=== PATIENT | female | born 1930 | race Caucasian/White ===

== ENCOUNTER 2016-12-09 21:52 | Emergency (ER) | payer MEDICARE, OTHER ==
[~2016-12-09 21:52] MED LIST: ALEVE220 M4 PO; AMBIEN5 M1 PO; ASPIR 8181 M1 PO; ASPIRIN LOW STR81 MG; BACTRIM PO; CALCIUM 600 W/V1 TAB; CALCIUM600 M1 PO; CHONDROITIN SUL; CIPRO500 M2 PO; DEMADEX20 M1 PO; ESCITALOPRAM; ESCITALOPRAM OXA5 M1 PO; FUROSEMIDE40 MG; GLUCOSAMINE &1 EAC1 PO; GLUCOSAMINE500 MG; LISINOPRIL10 M1 PO; LISINOPRIL5 M1 PO; LOVASTATIN10 M1 PO; METAMUCIL POWD283 GM PO; MULTIVITAMIN1 TAB; MULTIVITAMINS1 EAC6 PO; OMEGA-31000 MG; OXYBUTYNIN CHLOR5 M2 PO; POTASSIUM; PROMETHAZINE-C118 ML PO; RED YEAST RICE600 MG; STOOL SOFTENER100 MG; TRIAMTERENE; VALACYCLOVIR1000 M1 PO
[2016-12-09] MEDS ORDERED: LEXAPRO10 M2 PO (22:09)
[2016-12-09] MEDS ORDERED: MAXZIDE 37.5 M1 EAC1 PO (22:10)
[2016-12-09] MEDS ORDERED: FISH OIL 1,2001 EAC5 PO (22:11)
[2016-12-09] MEDS ORDERED: BIOTIN10 M1 PO (22:11)
[2016-12-09] MEDS ORDERED: MIRALAX119 G1 PO (22:11)
[2016-12-09] MEDS ORDERED: URECHOLINE25 M2 PO (22:12)
[2016-12-09 23:10] LABS: BASO % 0.2 % (0-2); EOSINOPHIL ABSOLUTE COUNT 0.1 tho/cmm (0.0-0.7); HCT-HEMATOCRIT 38.3 % (34.0-49.0); IMMATURE GRANULOCYTES ABSOLUTE 0.02 tho/cmm (0-0.03); IMMATURE GRANULOCYTES PERCENT 0.3 % (0-0.3); LYMPH % 21.3 % (20-45); LYMPH ABSOLUTE COUNT 1.3 tho/cmm (0.8-4.5); MCH (MEAN CORPUSCULAR HGB) 30.7 pg (28.0-32.0); MCHC MEAN CORPUSCULAR HGB CONC 33.9 % (32.0-36.0); MCV (MEAN CELL VOLUME) 90.3 fl (82.0-96.0); MONO % 11.1 % (0-12); MONOCYTE ABSOLUTE COUNT 0.7 tho/cmm (0.0-1.2); NEUTROPHIL ABSOLUTE COUNT 3.9 tho/cmm (1.6-8.0); NEUTROPHIL-AUTOMATED 3.9 tho/cmm (1.6-8.0); NEUTROPHILS % 66.1 % (40-80); PLATELET COUNT 211 tho/cmm (150-450); RED BLOOD COUNT 4.24 mil/cmm (4.00-5.20); RED CELL DISTRIBUTION WIDTH 13.1 % (12.4-16.4); WHITE BLOOD COUNT 5.9 tho/cmm (4.0-10.0)
[2016-12-09 23:22] LABS: ALB/GLOB RATIO 1.2 (0.8-2.0); ALKALINE PHOSPHATASE 91 U/L (33-138); ALT/SGPT 26 U/L (12-78); ANION GAP 12 mmol/L (0-20); AST/SGOT 26 U/L (10-40); BILIRUBIN,TOTAL 0.4 mg/dl (0-1.5); BLOOD UREA NITROGEN 22 mg/dl (6-24); CARBON DIOXIDE-VENOUS 25 mmol/L (22-32); CHLORIDE 102 mmol/l (96-110); CREATININE 0.98 mg/dl (0.50-1.10); GLUCOSE 111 mg/dL (70-110); POTASSIUM 3.3 mmol/L (3.7-5.1); SODIUM 136 mmol/L (135-145); eGFR VALUE FOR BLACK 61 mL/Min
== END 2016-12-10 00:32 ==
LOC: EDMED 21:52
PROVIDERS: Family Medicine
DX: I10 Essential (primary) hypertension (principal); R19.7 Diarrhea, unspecified; Z79.899 Other long term (current) drug therapy
CPT/HCPCS: J7030